=== PATIENT | female | born 1955 | race Caucasian/White ===

== ENCOUNTER → 2016-12-08 | Outpatient (CLI) | payer BC ==
--- NOTE | ~2016-12-08 | MY11 ---
[facility] A Service [facility] RADIOLOGY TEXT RESULTS PATIENT: ERNESTO KELSEY LOCATION: [facility] : 53 UNIT #: [id number] AGE: [address]: Nataliia Jordan DO SEX: F ORDER DR: [id number] [address] [address] [id number] O MR#: [id number] Acc #: [id number] NAME: ERNESTO KELSEY : 1955 SEX: F STUDY DATE/TIME: 12/08/2016 9:52 UNIT: [facility] ROOM: STUDY DESCRIPTION: MY Mammogram Screening Dig Alberto Attending Physician: Nataliia Jordan D.O. Referring Physician: Nataliia Jordan D.O. Ordering Physician: Nataliia Jordan D.O. Primary Care Physician: Nataliia Jordan D.O. MEDICAL IMAGING REPORT This report is preliminary unless electronic signature is present. EXAM Digital screening mammogram, 12/08/2016 HISTORY 61-year-old woman prior augmentation in 1977. Annual screening. COMPARISON Mammograms date to 02/12/2008 with most recent 09/28/2014. FINDINGS Digital imaging of each breast was completed utilizing conventional projections and standard Miguel views. Review includes FDA-approved CAD device. Bilateral subglandular silicone implants are again imaged. Envelope degradation is noted with fibrocalcific encapsulation bilaterally. There is either extracapsular silicone and/or considerable calcification adjacent to the left implant. The appearance overall is stable. There is no developing mass and no interval occurring microcalcifications. I see no suspicious architectural deformity. IMPRESSION Stable benign mammogram with stable implants as described. Annual screening recommended. Patients over the age of 40 are entered into a reminder system with target due date for the next mammogram. A result letter will also be sent to the patient. BIRADS: 2 Benign Finding Dictated by... Sourav Jackson M.D. THIS IS AN ELECTRONICALLY VERIFIED REPORT [facility] A Service [facility] RADIOLOGY TEXT RESULTS PATIENT: ERNESTO KELSEY LOCATION: [facility] : 53 UNIT #: [id number] AGE: [address]: Nataliia Jordan DO SEX: F ORDER DR: Sourav Jackson M.D. at 12/08/2016 12:58 PM Jarred TD: 12/08/2016 12:28 JOB #: [id number] MEDICAL IMAGING REPORT Page 1 of 1
== END | disposition home or self-care (01) ==
LOC: SMAM 08:52
DX: Z12.31 Encounter for screening mammogram for malignant neoplasm of breast (principal); Z78.0 Asymptomatic menopausal state
CPT/HCPCS: G0202